=== PATIENT | male | born 1955 | race Caucasian/White ===

== ENCOUNTER → 2016-06-13 | Outpatient (CLI) | payer OTHER | LOC: RAD 10:18 | PROVIDERS: ATTEND Specialist | DX: R91.1 Solitary pulmonary nodule (principal) | CPT/HCPCS: 71020 ==

== ENCOUNTER 2016-06-24 10:23 | Day surgery (SDC) | payer OTHER ==
[~2016-06-24 10:23] MED LIST: PROPOFOL INJ 200 MG/20 ML VIAL IV ONE
[2016-06-24] MEDS ORDERED: PROPOFOL INJ 200 MG/20 ML VIAL IV ONE (11:26)
[2016-06-24 12:01] VITALS: BP 116/57
--- NOTE | 2016-06-24 13:09 | Operative Report ---
Operative Report DATE OF SURGERY: 06/24/16 Operative Report: The risks, benefits and alternatives of the procedure including risks of bleeding, perforation requiring surgery are explained to the patient detail and informed consents obtained. Patient is taken back to the endoscopy suite and placed in a left, lateral decubital position. A rectal examination is done which did not reveal any masses tears or fissures. Timeout have been called. Propofol irrigation had been administered. The Olympus videoscope was inserted into the patient's rectum and gradually advanced all the way to the cecum. The cecum was identified by the usual anatomical landmarks including the ileocecal valve as well as the appendiceal office. Prep is good. Photo documentations obtained. Scope was then sequentially pulled back creative rest segments of the colon including the ascending colon, hepatic flexure, transverse colon, splenic flexure, descending colon and finally into the rectosigmoid portions of the colon. Retroflexion maneuvers performed. The risks benefits and alternatives of the procedure explained to the patient in detail and informed consent is obtained that GIF Olympus video scope was inserted into the patient's mouth and hypopharynx the esophagus is identified intubated and insufflated the scope was then advanced through the esophagus stomach and duodenum retroflexion maneuver is done the esophagus stomach and first and second portions of the duodenum examined PREOPERATIVE DIAGNOSIS: Colorectal cancer screening. Dysphagia POSTOPERATIVE DIAGNOSIS: Schatzki's ring which is broken. hiatal hernia. Gastritis status post biopsy rule out Helicobacter pylori. Colon polyp ascending colon attempted removal via snare polypectomy but essentially ablated in situ. Internal hemorrhoids OPERATION: Colonoscopy with snare polypectomy. EGD with biopsy SURGEON: CAROL AGGARWAL ANESTHESIA: LMAC TISSUE REMOVED OR ALTERED: As described above. COMPLICATIONS: None. ESTIMATED BLOOD LOSS: none. INTRAOPERATIVE FINDINGS: No masses, AVMs, or diverticulosis noted. Gastric ulcers noted PROCEDURE: Patient tolerated the procedure well. No immediate postprocedure complications are noted. Patient is discharged in good condition. Discharge date 06/24/16 Discharge diet: Regular. Discharge activity: Regular. Patient does have a 2-3 week follow-up to discuss findings. We'll await on pathology. We'll need five-year surveillance colonoscopy. Patient is instructed to call the office or proceed to the emergency room should there be any further problems or questions.
== END 2016-06-24 12:00 | disposition home or self-care (01) ==
LOC: END 10:23
PROVIDERS: ATTEND Internal Medicine Gastroenterology
PROC: 0DB68ZX Excision of Stomach, Via Natural or Artificial Opening Endoscopic, Diagnostic (ICD-10-PCS; principal; 2016-06-24 13:00)
PROC: 0DB58ZX Excision of Esophagus, Via Natural or Artificial Opening Endoscopic, Diagnostic (ICD-10-PCS; 2016-06-24 13:00)
DX: Z12.11 Encounter for screening for malignant neoplasm of colon (principal); D12.2 Benign neoplasm of ascending colon; K64.8 Other hemorrhoids; K29.50 Unspecified chronic gastritis without bleeding; K21.0 Gastro-esophageal reflux disease with esophagitis; K22.2 Esophageal obstruction; K44.9 Diaphragmatic hernia without obstruction or gangrene; K21.9 Gastro-esophageal reflux disease without esophagitis; I25.10 Atherosclerotic heart disease of native coronary artery without angina pectoris; E78.5 Hyperlipidemia, unspecified; I10 Essential (primary) hypertension; Z79.82 Long term (current) use of aspirin; Z79.899 Other long term (current) drug therapy; Z98.61 Coronary angioplasty status; D69.3 Immune thrombocytopenic purpura; Z95.0 Presence of cardiac pacemaker; Z85.820 Personal history of malignant melanoma of skin; Z88.5 Allergy status to narcotic agent
CPT/HCPCS: 43239; 45385; 88342 ×2; 88305 ×2; 88312 ×2; J2704; 740

== ENCOUNTER 2016-09-26 09:11 | Outpatient (CLI) | payer OTHER ==
[~2016-09-26 09:11] MED LIST changes: +ACETAMINOPHEN 325 MG TABLET PO PRN; +DIPHENHYDRAMINE HCL 25 MG CAPSULE PO PRN; +FUROSEMIDE INJ/PF 20 MG/2 ML SDV IV PRN; -PROPOFOL INJ 200 MG/20 ML VIAL IV ONE
[2016-09-26 09:37] LABS: HEMATOCRIT 23.7 % (37.9-51.0); HGB HCT DIFFERENCE -1.2; MEAN CORPUSCULAR HEMOGLOBIN 25.6 pg (27.0-33.4); MEAN CORPUSCULAR HGB CONC 31.6 g/dL (32.0-36.0); MEAN CORPUSCULAR VOLUME 81 fl (80-97); RED BLOOD COUNT 2.93 10^6/uL (4.35-5.55); RED CELL DISTRIBUTION WIDTH 31.5 % (11.5-14.0); WHITE BLOOD COUNT 13.1 10^3/uL (4.0-10.5)
[2016-09-26 09:45] LABS: HEMOGLOBIN 7.5 g/dL (13.5-17.0)
[2016-09-26] MEDS ORDERED: NORMAL SALINE 250 ML IV PRN (09:47)
[2016-09-26 16:42] VITALS: BP 110/55
== END 2016-09-26 17:00 | disposition home or self-care (01) ==
LOC: II 09:11 → 2S 09:12 → II 17:00
PROVIDERS: ATTEND Internal Medicine
PROC: 30233N1 Transfusion of Nonautologous Red Blood Cells into Peripheral Vein, Percutaneous Approach (ICD-10-PCS; principal; 2016-09-26)
DX: D64.9 Anemia, unspecified (principal)
CPT/HCPCS: 96374; 86900; 86901; 36415; 36430; 86850; 86920; P9016; J1940

== ENCOUNTER 2016-10-18 09:12 | Outpatient (CLI) | payer OTHER ==
[2016-10-18 09:42] LABS: HEMATOCRIT 22.9 % (37.9-51.0); HGB HCT DIFFERENCE -0.1; MEAN CORPUSCULAR HEMOGLOBIN 25.8 pg (27.0-33.4); MEAN CORPUSCULAR VOLUME 78 fl (80-97); RED BLOOD COUNT 2.93 10^6/uL (4.35-5.55); WHITE BLOOD COUNT 14.1 10^3/uL (4.0-10.5)
[2016-10-18] MEDS ORDERED: NORMAL SALINE 250 ML IV PRN (09:43)
[2016-10-18 10:11] LABS: HEMOGLOBIN 7.6 g/dL (13.5-17.0)
[2016-10-18 14:49] VITALS: BP 102/50
== END 2016-10-18 14:49 | disposition home or self-care (01) ==
LOC: II 09:12 → 5TH 09:18 → II 14:49
PROVIDERS: ATTEND Internal Medicine
PROC: 30233N1 Transfusion of Nonautologous Red Blood Cells into Peripheral Vein, Percutaneous Approach (ICD-10-PCS; principal; 2016-10-18)
DX: D64.9 Anemia, unspecified (principal)
CPT/HCPCS: 86900; 86901; 36415; 36430; 86850; 86920; P9016; J1940; 96374